=== PATIENT | male | born 1980 | race Caucasian/White ===

== ENCOUNTER 2018-04-24 23:44 | Inpatient (IN) ==
--- NOTE | 2018-04-25 00:36 | CT ---
CT chest without contrast Indication: Esophageal foreign body Comparison: None Technique: CT images of the chest were obtained after oral contrast administration. No IV contrast was given. Automatic exposure control was utilized. Findings: No acute osseous abnormality. The upper abdomen is grossly unremarkable. There is oral contrast observed within the proximal half of the esophagus, with fairly abrupt stoppage of the midesophagus, where there is an area of mild fusiform dilatation with apparent intraluminal soft tissue density measuring approximately 2 x 3 cm; the remainder of the esophagus is otherwise unremarkable. Evaluation of the mediastinal structures is limited without IV contrast. Accounting for this, the thoracic aorta is normal for technique. Normal heart size, without pericardial thickening or pericardial effusion. No pathologically enlarged intrathoracic lymph nodes are identified. There is there infiltrate within the basilar right lower lobe. The lungs are otherwise essentially clear. The large airways are grossly patent. No pleural effusion or pneumothorax. Impression: Findings of midesophageal impaction with soft tissue density/food bolus, with minimal dilatation of the upstream esophagus. Basilar right lower lobe infiltrate suggestive for pneumonitis or aspiration Reported By:
--- NOTE | 2018-04-25 00:38 | DR.FB ---
HPI Time Seen Time Seen by Provider: 04/25/18 00:04 PCP Primary Care Physician: HARDEEP Complaint Chief Complaint:: PATIENT WAS BROUGHT TO US FROM [facility] BY EMS TONIGHT. [facility] CALLED AND SPOKE WITH DR CERVANTES STATING THAT PATIENT HAD A FORIEGN O BJECT STUCK IN ESOPHAGUS. DR CERVANTES ASKED FOR PATIENT TO BE TRANSFERED TO OUR ED AND FOR DR REGALADO OUR ER PHYSICAN TO LOOK OVER HIS STUFF AND GIVE HIM A CALL BACK. LAURA STATED" HE WAS EATING A CORNDOG AND IT GOT STUCK." Chief Complaint Doctors Comments: Patient was transferred from [facility] for evaluation of esophageal obstruction of a foreign body; meat. He is in no acute distress. Source History Provided: Patient Mode of Arrival Mode of Arrival: EMS Timing Onset of Chief Complaint: 04/24/18 PMH PMH Past Medical History: Yes Past Medical History: Asthma, Hypertension, Kidney Stones and Renal Disease Past Surgical History: Yes Surgical History: Ortho Surgery Family History History of Family Medical Conditions: No Social History Does patient currently use any type of tobacco product: Yes Type of Tobacco Use: Smokeless Alcohol Use: None Do you use any recreational Drugs:: No infectious screening Have you traveled outside the country in the last 6 months?: No PE Vital Signs Vitals: Temperature 99.0 F Pulse Rate [Right] 70 Pulse Rate 94 Respiratory Rate 17 Blood Pressure [Right Arm] 128/80 Blood Pressure 143/85 O2 Sat by Pulse Oximetry 100 General Limitations: No Limitations General Appearance: Alert and In No Apparent Distress Eyes Eye exam: Normal Appearance, PERRL and EOMI ENT ENT Exam: Normal Exam, Normal Oropharynx and Normal External Ear Exam External Ear Exam: Normal External Inspection TM/Canal Exam: Bilateral: Normal Nose Exam: Normal Nose Exam Nasal Speculum Exam: Bilateral: Normal Mouth Exam: Normal Inspection; negative Drooling, Trismus, Lip Swelling and Tongue Elevation Throat Exam: Normal Inspection Neck Neck Exam: Normal Inspection Chest Chest Inspection: Normal Inspection Respiratory Respiratory Exam: Normal Lung Sounds Bilat Respiratory Exam: Bilateral: Clear to Auscultation Cardiovascular Cardiovascular Exam: Regular Rate and Normal Rhythm Abdominal Exam Abdominal Exam: Normal Inspection, Normal Bowel Sounds and Soft Rectal Rectal Exam: Deferred Genitalia Genitalia: Deferred Neurologic Neurological Exam: Alert, Oriented X3 and CN II-XII Intact Psychiatric Psychiatric Exam: Normal Affect and Normal Mood Skin Skin Exam: Warm, Dry and Intact COURSE Consultation Called: 01:00 Consultation Comments: Dr. Munguia agreed to admit for further evaluation and treatment. ROR Labs Reviewed Result Diagrams: 04/25/18 04:35 04/25/18 04:35 Laboratory: WBC 6.2 X10^3/uL (3.6-10.0) 04/25/18 04:35 RBC 4.98 X10^6/uL (4.7-6.0) 04/25/18 04:35 Hgb 14.7 g/dL (13.5-18.0) 04/25/18 04:35 Hct 43.1 % (42.0-54.0) 04/25/18 04:35 MCV 86.5 fL (80.0-100.0) 04/25/18 04:35 MCH 29.5 pg (27.0-34.0) 04/25/18 04:35 MCHC 34.1 g/dL (33.0-35.0) 04/25/18 04:35 RDW 14.0 % (11.6-16.5) 04/25/18 04:35 Plt Count 274 X10^3/uL (150.0-450.0) 04/25/18 04:35 MPV 7.0 fL (7.4-11.0) L 04/25/18 04:35 Neut % (Auto) 66.1 % (42.0-75.0) 04/25/18 04:35 Lymph % (Auto) 16.6 % (21.0-51.0) L 04/25/18 04:35 [place] % (Auto) 10.7 % (0.0-13.0) 04/25/18 04:35 Eos % (Auto) 5.6 % (0.9-2.9) H 04/25/18 04:35 Baso % (Auto) 1.0 % (0.2-1.0) 04/25/18 04:35 Neut # (Auto) 4.1 x10^3/uL (2.2-4.8) 04/25/18 04:35 Lymph # (Auto) 1.0 X10^3/uL (1.3-2.9) L 04/25/18 04:35 [place] # (Auto) 0.7 x10^3/uL (0.3-0.8) 04/25/18 04:35 Eos # (Auto) 0.3 x10^3/uL (0.0-0.2) H 04/25/18 04:35 Baso # (Auto) 0.1 X10^3/uL (0.0-0.1) 04/25/18 04:35 Absolute Nucleated RBC 0.1 /100WBC 04/25/18 04:35 Sodium 141 mmol/L (136-145) 04/25/18 04:35 Corrected Sodium TNP 04/25/18 04:35 Potassium 4.0 mmol/L (3.5-5.1) 04/25/18 04:35 Chloride 104 mmol/L (98-107) 04/25/18 04:35 Carbon Dioxide 30.1 mmol/L (21-32) 04/25/18 04:35 BUN 10 mg/dL (7-18) 04/25/18 04:35 Creatinine 0.91 mg/dL (0.70-1.30) 04/25/18 04:35 Est GFR (MDRD) Af Amer > 60 (>60) 04/25/18 04:35 Est GFR (MDRD) Non-Af > 60 (>60) 04/25/18 04:35 Glucose 98 mg/dL (65-99) 04/25/18 04:35 Calcium 8.8 mg/dL (8.5-10.1) 04/25/18 04:35 Corrected Calcium TNP 04/25/18 04:35 Total Bilirubin 0.30 mg/dL (0.2-1.0) 04/25/18 04:35 AST 16 Units/L (15-37) 04/25/18 04:35 ALT 32 Units/L (12-78) 04/25/18 04:35 Alkaline Phosphatase 70 Units/L (46-116) 04/25/18 04:35 Total Protein 7.3 g/dL (6.4-8.2) 04/25/18 04:35 Albumin 3.9 g/dL (3.4-5.0) 04/25/18 04:35 Globulin 3.4 g/dL (2.5-4.5) 04/25/18 04:35 Albumin/Globulin Ratio 1.1 Ratio (1.1-2.1) 04/25/18 04:35 Specimen Type Clean catch urine 04/25/18 04:33 Urine Color Yellow (YELLOW) 04/25/18 04:33 Urine Appearance Clear (CLEAR) 04/25/18 04:33 Urine pH 6.0 (5.0 - 8.0) 04/25/18 04:33 Ur Specific [place] 1.020 (1.000-1.030) 04/25/18 04:33 Urine Protein 1+ (NEGATIVE) 04/25/18 04:33 Urine Glucose (UA) Negative (NEGATIVE) 04/25/18 04:33 Urine Ketones Negative (NEGATIVE) 04/25/18 04:33 Urine Occult Blood 1+ (NEGATIVE) 04/25/18 04:33 Urine Nitrite Negative (NEGATIVE) 04/25/18 04:33 Urine Bilirubin Negative (NEGATIVE) 04/25/18 04:33 Urine Urobilinogen Normal (NORMAL) 04/25/18 04:33 Ur Leukocyte Esterase 1+ (NEGATIVE) 04/25/18 04:33 Urine RBC 3-5 /HPF (NONE SEEN) 04/25/18 04:33 Urine WBC 3-5 /HPF (NONE SEEN) 04/25/18 04:33 Ur Squamous Epith Cells Few /HPF (NEGATIVE) 04/25/18 04:33 Urine Bacteria Trace /HPF (NEGATIVE) 04/25/18 04:33 Urine Mucus Few /HPF (NEGATIVE) 04/25/18 04:33 Ur Culture Indicated? No/not indicated 04/25/18 04:33 Other Results Comments: CT Esophagus r/o Foreign Body:There is oral contrast observed within the proximal half of the esophagus, with fairly abrupt stoppage of the midesophagus, where there is an area of mild fusiform dilatation with apparent intraluminal soft tissue density measuring approximately 2.3 cm; the remainder of the esophagus is otherwise unremarkable. Diagnosis Discharge Problem: Acute obstruction of esophagus ADDITIONAL NOTES Additional Notes Additional Notes: Patient will be admitted to the service of Dr. Munguia with consult to surgeon Dr. Prater
[2018-04-25] MEDS: NS 1000 ML 1,000 ML IV SCH ×2 (01:27→13:41)
[2018-04-25 01:31] LABS: BASOPHILS # (AUTO) 0.1 X10^3/uL (0.0-0.1); BASOPHILS % (AUTO) 0.8 % (0.2-1.0); EOSINOPHILS # (AUTO) 0.4 x10^3/uL (0.0-0.2); EOSINOPHILS % (AUTO) 5.3 % (0.9-2.9); HEMATOCRIT 44.8 % (42.0-54.0); HEMOGLOBIN 15.5 g/dL (13.5-18.0); LYMPHOCYTES # (AUTO) 1.1 X10^3/uL (1.3-2.9); LYMPHOCYTES % (AUTO) 15.2 % (21.0-51.0); MEAN CORPUSCULAR HEMOGLOBIN 29.7 pg (27.0-34.0); MEAN CORPUSCULAR HGB CONC 34.5 g/dL (33.0-35.0); MEAN CORPUSCULAR VOLUME 86.1 fL (80.0-100.0); MEAN PLATELET VOLUME 6.9 fL (7.4-11.0); MONOCYTES # (AUTO) 0.7 x10^3/uL (0.3-0.8); MONOCYTES % (AUTO) 8.7 % (0.0-13.0); NEUTROPHILS # (AUTO) 5.3 x10^3/uL (2.2-4.8); PLATELET COUNT 296 X10^3/uL (150.0-450.0); WHITE BLOOD COUNT 7.5 X10^3/uL (3.6-10.0)
[2018-04-25] MEDS ORDERED: MORPHINE SULFATE INJ 4 MG ONE (01:38)
[2018-04-25] MEDS: MORPHINE SULFATE INJ 4 MG IVP PRN ×3 (01:40→20:10)
[2018-04-25 01:41] LABS: ALANINE AMINOTRANSFERASE 31 Units/L (12-78); ALBUMIN 4.1 g/dL (3.4-5.0); ALKALINE PHOSPHATASE 78 Units/L (46-116); ASPARTATE AMINO TRANSFERASE 19 Units/L (15-37); BLOOD UREA NITROGEN 10 mg/dL (7-18); CALCIUM 9.1 mg/dL (8.5-10.1); CARBON DIOXIDE 29.6 mmol/L (21-32); CHLORIDE 103 mmol/L (98-107); COR NA(FOR HYPERGLY) 143 mmol/L (136-145); CREATININE 0.87 mg/dL (0.70-1.30); SODIUM 142 mmol/L (136-145); TOTAL PROTEIN 7.9 g/dL (6.4-8.2); eGFR NON BLACK RACES > 60 (>60)
[2018-04-25] MEDS ORDERED: NS 1000 ML 1,000 ML IV SCH (02:00)
[2018-04-25] MEDS ORDERED: VIBRAMYCIN IV ONE (02:13)
[2018-04-25] MEDS ORDERED: NS 100 ML IV + SPIKE MINIBAG* 100 ML IV ONE (02:14)
[2018-04-25] MEDS: VIBRAMYCIN 100 MG in NS 100 ML IV + SPIKE MINIBAG* 100 ML IV SCH ×2 (02:27→20:04)
[2018-04-25 02:49] VITALS: BMI 32.1
--- NOTE | 2018-04-25 03:01 | RAD ---
Chest, 2 views Indication: Follow up esophageal impaction Comparison: CT chest from the same date Findings: The heart size is normal. Minimal posterior basilar right lower lobe airspace disease is unchanged. No pleural effusion or pneumothorax. No radiopaque foreign body or obvious esophageal dilatation is observed. Impression: Unchanged minimal right lower lobe airspace disease. Reported By:
[2018-04-25] MEDS ORDERED: SALINE 3% 15 ML NEB TX NEB ONE (04:30)
[2018-04-25 04:44] LABS: BILIRUBIN,URINE NEGATIVE (NEGATIVE); BLOOD/HEMOGLOBIN,URINE 1+ (NEGATIVE); GLUCOSE, URINE NEGATIVE (NEGATIVE); KETONES,URINE NEGATIVE (NEGATIVE); LEUKOCYTE ESTERASE ,URINE 1+ (NEGATIVE); NITRITES,URINE NEGATIVE (NEGATIVE); PROTEIN,URINE 1+ (NEGATIVE); UROBILINOGEN,URINE NORMAL (NORMAL)
[2018-04-25 04:57] LABS: APPEARANCE,URINE CLEAR (CLEAR); BACTERIA,URINE TRACE /HPF (NEGATIVE); COLOR,URINE YELLOW (YELLOW); MUCUS,URINE FEW /HPF (NEGATIVE); SQUAMOUS EPITHELIAL CELL,UR FEW /HPF (NEGATIVE)
[2018-04-25 05:12] LABS: BASOPHILS # (AUTO) 0.1 X10^3/uL (0.0-0.1); EOSINOPHILS # (AUTO) 0.3 x10^3/uL (0.0-0.2); EOSINOPHILS % (AUTO) 5.6 % (0.9-2.9); HEMATOCRIT 43.1 % (42.0-54.0); HEMOGLOBIN 14.7 g/dL (13.5-18.0); LYMPHOCYTES % (AUTO) 16.6 % (21.0-51.0); MEAN CORPUSCULAR HEMOGLOBIN 29.5 pg (27.0-34.0); MEAN CORPUSCULAR HGB CONC 34.1 g/dL (33.0-35.0); MEAN CORPUSCULAR VOLUME 86.5 fL (80.0-100.0); MONOCYTES # (AUTO) 0.7 x10^3/uL (0.3-0.8); MONOCYTES % (AUTO) 10.7 % (0.0-13.0); NEUTROPHILS # (AUTO) 4.1 x10^3/uL (2.2-4.8); NEUTROPHILS % (AUTO) 66.1 % (42.0-75.0); PLATELET COUNT 274 X10^3/uL (150.0-450.0); RED BLOOD COUNT 4.98 X10^6/uL (4.7-6.0); WHITE BLOOD COUNT 6.2 X10^3/uL (3.6-10.0)
[2018-04-25 05:23] LABS: ALANINE AMINOTRANSFERASE 32 Units/L (12-78); ALBUMIN 3.9 g/dL (3.4-5.0); ALKALINE PHOSPHATASE 70 Units/L (46-116); ASPARTATE AMINO TRANSFERASE 16 Units/L (15-37); BLOOD UREA NITROGEN 10 mg/dL (7-18); CALCIUM 8.8 mg/dL (8.5-10.1); CARBON DIOXIDE 30.1 mmol/L (21-32); CHLORIDE 104 mmol/L (98-107); CREATININE 0.91 mg/dL (0.70-1.30); SODIUM 141 mmol/L (136-145); TOTAL PROTEIN 7.3 g/dL (6.4-8.2); eGFR NON BLACK RACES > 60 (>60)
[2018-04-25] MEDS ORDERED: DIPRIVAN VIAL 20 ML ONE (07:42)
--- NOTE | 2018-04-25 08:08 | OR.GENERIC ---
Post-Op Note Generic - Post-Op Note Operative Report: EGD and dilation with the scope was done . finding : food bolus obstructing the esophagus and benign stricture of the mid esophagus ..and small Hiatal hernia Pt did well .. will keep on protonix 40 BID and to be followed in 2 weeks .
[2018-04-25] MEDS ORDERED: FLUVIRIN IM ONE (09:00)
[2018-04-25] MEDS ORDERED: PREVNAR 13 IM ONE (09:00)
[2018-04-25] MEDS ORDERED: LIORESAL PO PRN (09:25)
[2018-04-25] MEDS ORDERED: CHLORASEPTIC SPRAY MT PRN (10:05)
[2018-04-25] MEDS: NORCO 10/325 TAB PO PRN (10:29)
[2018-04-25] MEDS: FLOMAX PO SCH (10:29)
[2018-04-25] MEDS: PROTONIX INJ 40 MG VIAL IVP SCH ×2 (10:30→20:08)
[2018-04-25] MEDS: NEURONTIN TAB 600 MG PO SCH ×3 (10:31→21:31)
[2018-04-25] MEDS ORDERED: STERILE WATER IRRIGATION IR ONE (15:00)
[2018-04-25] MEDS: PROVENTIL NEB TX 0.083% 2.5MG/ 3ML NEB PRN ×2 (16:08→20:18)
--- NOTE | 2018-04-25 17:15 | DR.H&P ---
H&P - History & Physical for Day of: H&P Date: 04/24/18 - Chief Complaint Chief Complaint: SORE THROAT, FATIGUE COUGH - History of Present Illness History of Present Illness: 37 WM ER ADMISSION PRESENTED WITH DYSPHAGIA AND CONSULTED DR RG FOR EGD FOR FOOD BOLUS IN ESOPHAGUS. PT HAS CXR WITH POSSIBLE ASPIRATION PNEUMONIA. PT WAS TAKEN ER FOR EGD, TOLERATED WELL AND STARTED ON PROTONIX. PT STATES HE GERD AND RECENT WORSENED REFLUX WITH WHEEZING DUE TO ASTHMA AND ICNREASED FATIGUE. - Past Medical History Past Medical History: Hypertension, Renal Disease, Asthma, Kidney Stones - Past Surgical History Surgical History: Ortho Surgery - Social History Does patient currently use any type of tobacco product: Yes Have you used tobacco products in the last 12 months: Yes Type of Tobacco Use: Smokeless How many years tobacco product used: 18 Packs per day or dips/chews per day: 1PK Does any household member use tobacco: No Alcohol Use: None Drug Use: None - Medications Home Medications: No Known Drug Allergies Allergy (Verified 04/25/18 00:23) CONTINUE taking the following medications albuterol sulfate [Ventolin HFA] 2 pf unit INHALATION QID PRN 04/25/18 [History] allopurinol 1 tab PO DAILY 04/25/18 [History] atorvastatin 1 tab PO HS 04/25/18 [History] baclofen 1 tab PO TID PRN 04/25/18 [History] cetirizine 1 tab PO DAILY 04/25/18 [History] gabapentin 1 tab PO TID 04/25/18 [History] hydrocodone-acetaminophen 1 tab PO Q6H PRN 04/25/18 [History] ibuprofen 1 tab PO Q6H 04/25/18 [History] lisinopril-hydrochlorothiazide 1 tab PO BID 04/25/18 [History] tamsulosin 1 cap PO DAILY 04/25/18 [History] tramadol 1 - 2 tab PO Q6H PRN 04/25/18 [History] trazodone 1 tab PO HS 04/25/18 [History] - Review of Systems Constitutional: Fever Eyes: No Symptoms Reported ENT: Throat Pain Respiratory: Cough, Wheezing Cardiovascular: No Symptoms Reported Gastrointestinal: No Symptoms Reported Genitourinary: No Symptoms Reported Musculoskeletal: No Symptoms Reported Skin: No Symptoms Reported Neurological: No Symptoms Reported - Physical Exam Vital Signs: Temperature 97.8 F Pulse Rate [Right] 80 Pulse Rate 96 Respiratory Rate 18 Blood Pressure [Right Arm] 112/65 Blood Pressure 143/85 O2 Sat by Pulse Oximetry 99 Oriented: Normal Eyes: Normal Ear: Normal Nose: Normal Throat: Red, Exudate Respiratory: RLL Diminished, LLL Diminished Cardiovascular: Normal : Normal Auscultation: Bowel Sounds: Normal Palpation: Normal Tenderness: Normal Skin: Normal Musculoskeletal: Normal Psychiatric: Depression Mood Description: Calm Speech Pattern: Clear, Appropriate - Assessment/Plan (1) Aspiration pneumonia Status: Acute Plan: ADMIT, PNEUMONIA PROTOCOL, IV ATBX. RESP THERAPY. GENTLE HYDRATION, PPI. RESUME HOME MEDICATION (2) Acute obstruction of esophagus Status: Acute Plan: EGD PER DR RG (3) Anxiety Status: Acute (4) GERD (gastroesophageal reflux disease) Status: Acute - Allergies Allergies/Adverse Reactions: Allergies Allergy/AdvReac Type Severity Reaction Status Date / Time No Known Drug Allergies Allergy Verified 04/25/18 00:23
[2018-04-25] MEDS ORDERED: ZESTRIL TAB 20 MG ONE (19:56)
[2018-04-25] MEDS: LIPITOR TAB 20 MG PO SCH (20:05)
[2018-04-25] MEDS: DESYREL PO SCH (20:05)
[2018-04-25] MEDS: HYDROCHLOROTHIAZIDE 12.5 MG CAP PO SCH (20:06)
[2018-04-25] MEDS: ZESTRIL TAB 20 MG PO SCH (20:39)
[2018-04-25] MEDS ORDERED: PATIENT'S HOME MEDICATION (Lisinopril-Hydrochlorothiazide [Lisinopril-Hydrochlorothiazide] PO SCH (21:00)
[2018-04-26] MEDS ORDERED: TYLENOL 325 MG TAB PO ONE (04:38)
[2018-04-26] MEDS: TYLENOL 325 MG TAB PO PRN ×2 (04:42→07:31)
[2018-04-26] MEDS: NS 1000 ML 1,000 ML IV SCH ×2 (04:43→18:59)
[2018-04-26] MEDS: NEURONTIN TAB 600 MG PO SCH ×3 (05:05→21:53)
[2018-04-26 05:17] LABS: BASOPHILS # (AUTO) 0.1 X10^3/uL (0.0-0.1); BASOPHILS % (AUTO) 0.8 % (0.2-1.0); EOSINOPHILS # (AUTO) 0.3 x10^3/uL (0.0-0.2); EOSINOPHILS % (AUTO) 5.2 % (0.9-2.9); HEMATOCRIT 38.7 % (42.0-54.0); HEMOGLOBIN 13.1 g/dL (13.5-18.0); LYMPHOCYTES % (AUTO) 15.6 % (21.0-51.0); MEAN CORPUSCULAR HEMOGLOBIN 29.5 pg (27.0-34.0); MEAN CORPUSCULAR HGB CONC 33.8 g/dL (33.0-35.0); MEAN CORPUSCULAR VOLUME 87.5 fL (80.0-100.0); MEAN PLATELET VOLUME 6.9 fL (7.4-11.0); MONOCYTES # (AUTO) 0.7 x10^3/uL (0.3-0.8); MONOCYTES % (AUTO) 11.7 % (0.0-13.0); NEUTROPHILS # (AUTO) 4.3 x10^3/uL (2.2-4.8); NEUTROPHILS % (AUTO) 66.7 % (42.0-75.0); PLATELET COUNT 248 X10^3/uL (150.0-450.0); RED BLOOD COUNT 4.42 X10^6/uL (4.7-6.0); RED CELL DISTRIBUTION WIDTH 14.4 % (11.6-16.5); WHITE BLOOD COUNT 6.4 X10^3/uL (3.6-10.0)
[2018-04-26 05:34] LABS: ALANINE AMINOTRANSFERASE 31 Units/L (12-78); ALBUMIN 3.5 g/dL (3.4-5.0); ALKALINE PHOSPHATASE 64 Units/L (46-116); ASPARTATE AMINO TRANSFERASE 20 Units/L (15-37); BLOOD UREA NITROGEN 11 mg/dL (7-18); CALCIUM 8.5 mg/dL (8.5-10.1); CARBON DIOXIDE 28.4 mmol/L (21-32); CHLORIDE 104 mmol/L (98-107); CREATININE 1.45 mg/dL (0.70-1.30); SODIUM 140 mmol/L (136-145); TOTAL PROTEIN 6.9 g/dL (6.4-8.2); eGFR NON BLACK RACES 59 (>60)
[2018-04-26] MEDS: NORCO 10/325 TAB PO PRN ×2 (05:35→16:00)
--- NOTE | 2018-04-26 06:24 | RAD ---
HISTORY: Follow-up midesophageal obstruction Study: Chest AP portable Comparison: 04/25/2018 plain film and chest CT Findings: The heart is within normal limits in size. The sa[place] are normal. The lungs are free of acute alveolar infiltrates. There is minimal subsegmental atelectasis in the right lung base. No pleural effusions are identified. The bony thorax is unremarkable. IMPRESSION: Minimal subsegmental atelectasis right lung base Reported By:
[2018-04-26] MEDS ORDERED: ZESTRIL TAB 20 MG ONE ×2 (08:08→19:55)
[2018-04-26] MEDS: PROVENTIL NEB TX 0.083% 2.5MG/ 3ML NEB PRN ×2 (08:16→12:10)
[2018-04-26] MEDS: VIBRAMYCIN 100 MG in NS 100 ML IV + SPIKE MINIBAG* 100 ML IV SCH ×2 (08:36→20:09)
[2018-04-26] MEDS: FLOMAX PO SCH (08:36)
[2018-04-26] MEDS: HYDROCHLOROTHIAZIDE 12.5 MG CAP PO SCH ×2 (08:37→20:10)
[2018-04-26] MEDS: ZyrTEC TAB 10 MG PO SCH (08:37)
[2018-04-26] MEDS: ZESTRIL TAB 20 MG PO SCH ×2 (08:37→20:11)
[2018-04-26] MEDS: PROTONIX INJ 40 MG VIAL IVP SCH ×2 (08:40→20:09)
[2018-04-26] MEDS: MORPHINE SULFATE INJ 4 MG IVP PRN ×2 (08:45→19:26)
[2018-04-26] MEDS: LEVAQUIN PREMIX IV 750 MG 750 MG/150 ML BAG IV SCH (09:38)
[2018-04-26] MEDS: LEVSIN/MAALOX/LIDOC VISC PO SCH ×4 (10:19→20:09)
--- NOTE | 2018-04-26 17:51 | PCM.PROG ---
Progress Note - Progress Note for Day of Date of Exam: 04/25/18 - Subjective Subjective: 55 WM ER ADMISSION WITH CO FOOD STUCK IN HIS ESOPHAGUS, DR RG WAS CONSULTED FOR EGD TO REMOVE FOOD BOLUS. PT HAS CXR REVEALING PNEUMONIA, POSSIBLE ASPIRATION. PT CURRENTLY ON IV ATBX, RESP THERAPY WITH SPUTUM CULTURE COLLECTED ON ADMISSION. PT CO MILD WHEEZING THIS AM, CO FEELING BAD FOR SEVERAL DAYS PRIOR TO CHOKING EPISODE. PT CO REALLY SORE THROAT THIS AM. PT HOME MEDICATION RESTARTED, WILL REPEAT AM CXR. - Past Medical Family Social History Past Med/Fam/Surg Hx: No changes since H&P Allergies: Allergies No Known Drug Allergies Allergy (Verified 04/25/18 00:23) - Review of Systems ROS: No change since H&P - Vital Signs and I&O's Vital Signs: Temperature 100.0 F Pulse Rate [Right] 110 Pulse Rate 110 Respiratory Rate 18 Blood Pressure [Right Arm] 122/70 Blood Pressure 143/85 O2 Sat by Pulse Oximetry 99 Intake and Output: Intake & Output 04/24/18 04/25/18 04/26/18 04/27/18 11:59 11:59 11:59 11:59 Intake Total 480 / 480 4241 / 4241 1400 / 1400 Balance 480 / 480 4241 / 4241 1400 / 1400 - Physical Exam Oriented: Normal Eyes: Normal Ear: Normal Nose: Normal Throat: Red, Exudate Respiratory: Wheezes Cardiovascular: Normal : Normal Auscultation: Bowel Sounds: Normal Tenderness: Normal Skin: Normal Musculoskeletal: Normal Psychiatric: Depression Mood Description: Calm Speech Pattern: Clear, Appropriate - Laboratory and Diagnostics Result Diagrams: 04/26/18 03:55 04/26/18 03:55 Labs: 04/25/18 05:21 Sputum - Expectorated Sputum Sputum Culture - Preliminary 04/25/18 05:21 Sputum - Expectorated Sputum - Final Laboratory WBC 6.4 X10^3/uL (3.6-10.0) 04/26/18 03:55 RBC 4.42 X10^6/uL (4.7-6.0) L 04/26/18 03:55 Hgb 13.1 g/dL (13.5-18.0) L 04/26/18 03:55 Hct 38.7 % (42.0-54.0) L 04/26/18 03:55 MCV 87.5 fL (80.0-100.0) 04/26/18 03:55 MCH 29.5 pg (27.0-34.0) 04/26/18 03:55 MCHC 33.8 g/dL (33.0-35.0) 04/26/18 03:55 RDW 14.4 % (11.6-16.5) 04/26/18 03:55 Plt Count 248 X10^3/uL (150.0-450.0) 04/26/18 03:55 MPV 6.9 fL (7.4-11.0) L 04/26/18 03:55 Neut % (Auto) 66.7 % (42.0-75.0) 04/26/18 03:55 Lymph % (Auto) 15.6 % (21.0-51.0) L 04/26/18 03:55 [place] % (Auto) 11.7 % (0.0-13.0) 04/26/18 03:55 Eos % (Auto) 5.2 % (0.9-2.9) H 04/26/18 03:55 Baso % (Auto) 0.8 % (0.2-1.0) 04/26/18 03:55 Neut # (Auto) 4.3 x10^3/uL (2.2-4.8) 04/26/18 03:55 Lymph # (Auto) 1.0 X10^3/uL (1.3-2.9) L 04/26/18 03:55 [place] # (Auto) 0.7 x10^3/uL (0.3-0.8) 04/26/18 03:55 Eos # (Auto) 0.3 x10^3/uL (0.0-0.2) H 04/26/18 03:55 Baso # (Auto) 0.1 X10^3/uL (0.0-0.1) 04/26/18 03:55 Absolute Nucleated RBC 0.0 /100WBC 04/26/18 03:55 Sodium 140 mmol/L (136-145) 04/26/18 03:55 Corrected Sodium TNP 04/26/18 03:55 Potassium 4.8 mmol/L (3.5-5.1) 04/26/18 03:55 Chloride 104 mmol/L (98-107) 04/26/18 03:55 Carbon Dioxide 28.4 mmol/L (21-32) 04/26/18 03:55 BUN 11 mg/dL (7-18) 04/26/18 03:55 Creatinine 1.45 mg/dL (0.70-1.30) H 04/26/18 03:55 Est GFR (MDRD) Af Amer > 60 (>60) 04/26/18 03:55 Est GFR (MDRD) Non-Af 59 (>60) 04/26/18 03:55 Glucose 97 mg/dL (65-99) 04/26/18 03:55 Calcium 8.5 mg/dL (8.5-10.1) 04/26/18 03:55 Corrected Calcium TNP 04/26/18 03:55 Total Bilirubin 0.60 mg/dL (0.2-1.0) 04/26/18 03:55 AST 20 Units/L (15-37) 04/26/18 03:55 ALT 31 Units/L (12-78) 04/26/18 03:55 Alkaline Phosphatase 64 Units/L (46-116) 04/26/18 03:55 Total Protein 6.9 g/dL (6.4-8.2) 04/26/18 03:55 Albumin 3.5 g/dL (3.4-5.0) 04/26/18 03:55 Globulin 3.4 g/dL (2.5-4.5) 04/26/18 03:55 Albumin/Globulin Ratio 1.0 Ratio (1.1-2.1) L 04/26/18 03:55 Specimen Type Clean catch urine 04/25/18 04:33 Urine Color Yellow (YELLOW) 04/25/18 04:33 Urine Appearance Clear (CLEAR) 04/25/18 04:33 Urine pH 6.0 (5.0 - 8.0) 04/25/18 04:33 Ur Specific [place] 1.020 (1.000-1.030) 04/25/18 04:33 Urine Protein 1+ (NEGATIVE) 04/25/18 04:33 Urine Glucose (UA) Negative (NEGATIVE) 04/25/18 04:33 Urine Ketones Negative (NEGATIVE) 04/25/18 04:33 Urine Occult Blood 1+ (NEGATIVE) 04/25/18 04:33 Urine Nitrite Negative (NEGATIVE) 04/25/18 04:33 Urine Bilirubin Negative (NEGATIVE) 04/25/18 04:33 Urine Urobilinogen Normal (NORMAL) 04/25/18 04:33 Ur Leukocyte Esterase 1+ (NEGATIVE) 04/25/18 04:33 Urine RBC 3-5 /HPF (NONE SEEN) 04/25/18 04:33 Urine WBC 3-5 /HPF (NONE SEEN) 04/25/18 04:33 Ur Squamous Epith Cells Few /HPF (NEGATIVE) 04/25/18 04:33 Urine Bacteria Trace /HPF (NEGATIVE) 04/25/18 04:33 Urine Mucus Few /HPF (NEGATIVE) 04/25/18 04:33 Ur Culture Indicated? No/not indicated 04/25/18 04:33 - Plan (1) Aspiration pneumonia Status: Acute Plan: PNEUMONIA PROTOCOL, IV ATBX. RESP THERAPY. GENTLE HYDRATION, PPI. RESUME HOME MEDICATION (2) Acute obstruction of esophagus Status: Acute Plan: EGD PER DR RG (3) Anxiety Status: Acute (4) GERD (gastroesophageal reflux disease) Status: Acute
--- NOTE | 2018-04-26 17:53 | PCM.PROG ---
Progress Note - Progress Note for Day of Date of Exam: 04/26/18 - Subjective Subjective: 55 WM ER ADMISSION WITH CO FOOD STUCK IN HIS ESOPHAGUS, DR RG WAS CONSULTED FOR EGD TO REMOVE FOOD BOLUS. PT HAS CXR REVEALING PNEUMONIA, POSSIBLE ASPIRATION. PT CURRENTLY ON IV ATBX, RESP THERAPY WITH SPUTUM CULTURE COLLECTED ON ADMISSION. PT CO IMPROVING SORE THROAT, CONTINUES WITH MILD WHEEZING, COUGH. PT HAD FEVER DURING THE NIGHT. REPEAT CXR THIS AM IMPROVING. ADDED LEVAQUIN IV AND REPEAT AM LABS AND GI COCKTAIL. - Past Medical Family Social History Past Med/Fam/Surg Hx: No changes since H&P Allergies: Allergies No Known Drug Allergies Allergy (Verified 04/25/18 00:23) - Review of Systems ROS: No change since H&P - Vital Signs and I&O's Vital Signs: Temperature 100.0 F Pulse Rate [Right] 110 Pulse Rate 110 Respiratory Rate 18 Blood Pressure [Right Arm] 122/70 Blood Pressure 143/85 O2 Sat by Pulse Oximetry 99 Intake and Output: Intake & Output 04/24/18 04/25/18 04/26/18 04/27/18 11:59 11:59 11:59 11:59 Intake Total 480 / 480 4241 / 4241 1400 / 1400 Balance 480 / 480 4241 / 4241 1400 / 1400 - Physical Exam Oriented: Normal Eyes: Normal Ear: Normal Nose: Normal Throat: Red, Exudate Respiratory: Wheezes Cardiovascular: Normal : Normal Auscultation: Bowel Sounds: Normal Tenderness: Normal Skin: Normal Musculoskeletal: Normal Psychiatric: Depression Mood Description: Calm Speech Pattern: Clear, Appropriate - Laboratory and Diagnostics Result Diagrams: 04/26/18 03:55 04/26/18 03:55 Labs: 04/25/18 05:21 Sputum - Expectorated Sputum Sputum Culture - Preliminary 04/25/18 05:21 Sputum - Expectorated Sputum - Final Laboratory WBC 6.4 X10^3/uL (3.6-10.0) 04/26/18 03:55 RBC 4.42 X10^6/uL (4.7-6.0) L 04/26/18 03:55 Hgb 13.1 g/dL (13.5-18.0) L 04/26/18 03:55 Hct 38.7 % (42.0-54.0) L 04/26/18 03:55 MCV 87.5 fL (80.0-100.0) 04/26/18 03:55 MCH 29.5 pg (27.0-34.0) 04/26/18 03:55 MCHC 33.8 g/dL (33.0-35.0) 04/26/18 03:55 RDW 14.4 % (11.6-16.5) 04/26/18 03:55 Plt Count 248 X10^3/uL (150.0-450.0) 04/26/18 03:55 MPV 6.9 fL (7.4-11.0) L 04/26/18 03:55 Neut % (Auto) 66.7 % (42.0-75.0) 04/26/18 03:55 Lymph % (Auto) 15.6 % (21.0-51.0) L 04/26/18 03:55 [place] % (Auto) 11.7 % (0.0-13.0) 04/26/18 03:55 Eos % (Auto) 5.2 % (0.9-2.9) H 04/26/18 03:55 Baso % (Auto) 0.8 % (0.2-1.0) 04/26/18 03:55 Neut # (Auto) 4.3 x10^3/uL (2.2-4.8) 04/26/18 03:55 Lymph # (Auto) 1.0 X10^3/uL (1.3-2.9) L 04/26/18 03:55 [place] # (Auto) 0.7 x10^3/uL (0.3-0.8) 04/26/18 03:55 Eos # (Auto) 0.3 x10^3/uL (0.0-0.2) H 04/26/18 03:55 Baso # (Auto) 0.1 X10^3/uL (0.0-0.1) 04/26/18 03:55 Absolute Nucleated RBC 0.0 /100WBC 04/26/18 03:55 Sodium 140 mmol/L (136-145) 04/26/18 03:55 Corrected Sodium TNP 04/26/18 03:55 Potassium 4.8 mmol/L (3.5-5.1) 04/26/18 03:55 Chloride 104 mmol/L (98-107) 04/26/18 03:55 Carbon Dioxide 28.4 mmol/L (21-32) 04/26/18 03:55 BUN 11 mg/dL (7-18) 04/26/18 03:55 Creatinine 1.45 mg/dL (0.70-1.30) H 04/26/18 03:55 Est GFR (MDRD) Af Amer > 60 (>60) 04/26/18 03:55 Est GFR (MDRD) Non-Af 59 (>60) 04/26/18 03:55 Glucose 97 mg/dL (65-99) 04/26/18 03:55 Calcium 8.5 mg/dL (8.5-10.1) 04/26/18 03:55 Corrected Calcium TNP 04/26/18 03:55 Total Bilirubin 0.60 mg/dL (0.2-1.0) 04/26/18 03:55 AST 20 Units/L (15-37) 04/26/18 03:55 ALT 31 Units/L (12-78) 04/26/18 03:55 Alkaline Phosphatase 64 Units/L (46-116) 04/26/18 03:55 Total Protein 6.9 g/dL (6.4-8.2) 04/26/18 03:55 Albumin 3.5 g/dL (3.4-5.0) 04/26/18 03:55 Globulin 3.4 g/dL (2.5-4.5) 04/26/18 03:55 Albumin/Globulin Ratio 1.0 Ratio (1.1-2.1) L 04/26/18 03:55 Specimen Type Clean catch urine 04/25/18 04:33 Urine Color Yellow (YELLOW) 04/25/18 04:33 Urine Appearance Clear (CLEAR) 04/25/18 04:33 Urine pH 6.0 (5.0 - 8.0) 04/25/18 04:33 Ur Specific [place] 1.020 (1.000-1.030) 04/25/18 04:33 Urine Protein 1+ (NEGATIVE) 04/25/18 04:33 Urine Glucose (UA) Negative (NEGATIVE) 04/25/18 04:33 Urine Ketones Negative (NEGATIVE) 04/25/18 04:33 Urine Occult Blood 1+ (NEGATIVE) 04/25/18 04:33 Urine Nitrite Negative (NEGATIVE) 04/25/18 04:33 Urine Bilirubin Negative (NEGATIVE) 04/25/18 04:33 Urine Urobilinogen Normal (NORMAL) 04/25/18 04:33 Ur Leukocyte Esterase 1+ (NEGATIVE) 04/25/18 04:33 Urine RBC 3-5 /HPF (NONE SEEN) 04/25/18 04:33 Urine WBC 3-5 /HPF (NONE SEEN) 04/25/18 04:33 Ur Squamous Epith Cells Few /HPF (NEGATIVE) 04/25/18 04:33 Urine Bacteria Trace /HPF (NEGATIVE) 04/25/18 04:33 Urine Mucus Few /HPF (NEGATIVE) 04/25/18 04:33 Ur Culture Indicated? No/not indicated 04/25/18 04:33 - Plan (1) Aspiration pneumonia Status: Acute Plan: PNEUMONIA PROTOCOL, IV ATBX. RESP THERAPY. GENTLE HYDRATION, PPI. RESUME HOME MEDICATION (2) Acute obstruction of esophagus Status: Acute Plan: EGD PER DR RG (3) Anxiety Status: Acute (4) GERD (gastroesophageal reflux disease) Status: Acute
[2018-04-26] MEDS: DESYREL PO SCH (20:10)
[2018-04-26] MEDS: LIPITOR TAB 20 MG PO SCH (20:10)
[2018-04-27] MEDS: MORPHINE SULFATE INJ 4 MG IVP PRN ×2 (03:50→20:23)
[2018-04-27] MEDS: NEURONTIN TAB 600 MG PO SCH ×3 (05:06→21:45)
[2018-04-27 05:32] LABS: BASOPHILS % (AUTO) 0.8 % (0.2-1.0); EOSINOPHILS # (AUTO) 0.5 x10^3/uL (0.0-0.2); EOSINOPHILS % (AUTO) 11.2 % (0.9-2.9); HEMATOCRIT 38.1 % (42.0-54.0); HEMOGLOBIN 13.1 g/dL (13.5-18.0); LYMPHOCYTES # (AUTO) 1.2 X10^3/uL (1.3-2.9); LYMPHOCYTES % (AUTO) 25.5 % (21.0-51.0); MEAN CORPUSCULAR HGB CONC 34.3 g/dL (33.0-35.0); MEAN CORPUSCULAR VOLUME 87.4 fL (80.0-100.0); MEAN PLATELET VOLUME 6.8 fL (7.4-11.0); MONOCYTES # (AUTO) 0.6 x10^3/uL (0.3-0.8); MONOCYTES % (AUTO) 13.6 % (0.0-13.0); NEUTROPHILS # (AUTO) 2.3 x10^3/uL (2.2-4.8); NEUTROPHILS % (AUTO) 48.9 % (42.0-75.0); PLATELET COUNT 227 X10^3/uL (150.0-450.0); RED BLOOD COUNT 4.36 X10^6/uL (4.7-6.0); RED CELL DISTRIBUTION WIDTH 14.2 % (11.6-16.5); WHITE BLOOD COUNT 4.6 X10^3/uL (3.6-10.0)
[2018-04-27 05:45] LABS: ALANINE AMINOTRANSFERASE 26 Units/L (12-78); ALBUMIN 3.3 g/dL (3.4-5.0); ALKALINE PHOSPHATASE 61 Units/L (46-116); ASPARTATE AMINO TRANSFERASE 16 Units/L (15-37); BLOOD UREA NITROGEN 7 mg/dL (7-18); CALCIUM 8.2 mg/dL (8.5-10.1); CARBON DIOXIDE 32.2 mmol/L (21-32); CHLORIDE 102 mmol/L (98-107); COR CA(FOR HYPOALB) 8.8 mg/dL (8.5-10.1); CREATININE 0.94 mg/dL (0.70-1.30); SODIUM 141 mmol/L (136-145); TOTAL PROTEIN 6.6 g/dL (6.4-8.2); eGFR NON BLACK RACES > 60 (>60)
[2018-04-27] MEDS: NS 1000 ML 1,000 ML IV SCH ×3 (06:26→22:27)
[2018-04-27] MEDS ORDERED: ZESTRIL TAB 20 MG ONE ×2 (08:36→20:01)
[2018-04-27] MEDS: NORCO 10/325 TAB PO PRN ×2 (08:58→15:32)
[2018-04-27] MEDS: ZyrTEC TAB 10 MG PO SCH (08:59)
[2018-04-27] MEDS: FLOMAX PO SCH (08:59)
[2018-04-27] MEDS: ZESTRIL TAB 20 MG PO SCH ×2 (08:59→20:22)
[2018-04-27] MEDS: HYDROCHLOROTHIAZIDE 12.5 MG CAP PO SCH ×2 (08:59→20:22)
[2018-04-27] MEDS: LEVAQUIN PREMIX IV 750 MG 750 MG/150 ML BAG IV SCH (08:59)
[2018-04-27] MEDS: VIBRAMYCIN 100 MG in NS 100 ML IV + SPIKE MINIBAG* 100 ML IV SCH ×2 (09:00→20:21)
[2018-04-27] MEDS: PROTONIX INJ 40 MG VIAL IVP SCH ×2 (09:00→20:22)
[2018-04-27] MEDS: PROVENTIL NEB TX 0.083% 2.5MG/ 3ML NEB PRN (10:18)
--- NOTE | 2018-04-27 12:54 | PCM.PROG ---
Progress Note - Progress Note for Day of Date of Exam: 04/27/18 - Subjective Subjective: 55 WM ER ADMISSION WITH CO FOOD STUCK IN HIS ESOPHAGUS, DR RG WAS CONSULTED FOR EGD TO REMOVE FOOD BOLUS. PT HAS CXR REVEALING PNEUMONIA, POSSIBLE ASPIRATION. PT CURRENTLY ON IV ATBX, RESP THERAPY WITH SPUTUM CULTURE COLLECTED ON ADMISSION. PT CO IMPROVING SORE THROAT, CONTINUES WITH MILD WHEEZING, COUGH AND CO SINUS AND HEAD CONGESTION. PT AFEBRILE THIS AM. WILL REPEAT 2VIEW CHEST XRAY AND ADD SIMON AND FLONASE - Past Medical Family Social History Past Med/Fam/Surg Hx: No changes since H&P Allergies: Allergies No Known Drug Allergies Allergy (Verified 04/25/18 00:23) - Review of Systems ROS: No change since H&P - Vital Signs and I&O's Vital Signs: Temperature 98.9 F Pulse Rate [Right] 110 Pulse Rate 94 Respiratory Rate 20 Blood Pressure [Right Arm] 114/61 Blood Pressure 143/85 O2 Sat by Pulse Oximetry 98 Intake and Output: Intake & Output 04/25/18 04/26/18 04/27/18 04/28/18 11:59 11:59 11:59 11:59 Intake Total 480 / 480 4241 / 4241 3860 / 3860 Balance 480 / 480 4241 / 4241 3860 / 3860 - Physical Exam Oriented: Normal Eyes: Normal Ear: Normal Nose: Normal Throat: Red, Exudate Respiratory: Wheezes Cardiovascular: Normal : Normal Auscultation: Bowel Sounds: Normal Tenderness: Normal Skin: Normal Musculoskeletal: Normal Psychiatric: Depression Mood Description: Calm Speech Pattern: Clear, Appropriate - Laboratory and Diagnostics Result Diagrams: 04/27/18 04:05 04/27/18 04:05 Labs: 04/25/18 01:40 Blood Blood Culture - Preliminary 04/25/18 01:35 Blood Blood Culture - Preliminary 04/25/18 05:21 Sputum - Expectorated Sputum Sputum Culture - Final 04/25/18 05:21 Sputum - Expectorated Sputum - Final Laboratory WBC 4.6 X10^3/uL (3.6-10.0) 04/27/18 04:05 RBC 4.36 X10^6/uL (4.7-6.0) L 04/27/18 04:05 Hgb 13.1 g/dL (13.5-18.0) L 04/27/18 04:05 Hct 38.1 % (42.0-54.0) L 04/27/18 04:05 MCV 87.4 fL (80.0-100.0) 04/27/18 04:05 MCH 30.0 pg (27.0-34.0) 04/27/18 04:05 MCHC 34.3 g/dL (33.0-35.0) 04/27/18 04:05 RDW 14.2 % (11.6-16.5) 04/27/18 04:05 Plt Count 227 X10^3/uL (150.0-450.0) 04/27/18 04:05 MPV 6.8 fL (7.4-11.0) L 04/27/18 04:05 Neut % (Auto) 48.9 % (42.0-75.0) 04/27/18 04:05 Lymph % (Auto) 25.5 % (21.0-51.0) 04/27/18 04:05 Pershing % (Auto) 13.6 % (0.0-13.0) H 04/27/18 04:05 Eos % (Auto) 11.2 % (0.9-2.9) H 04/27/18 04:05 Baso % (Auto) 0.8 % (0.2-1.0) 04/27/18 04:05 Neut # (Auto) 2.3 x10^3/uL (2.2-4.8) 04/27/18 04:05 Lymph # (Auto) 1.2 X10^3/uL (1.3-2.9) L 04/27/18 04:05 Pershing # (Auto) 0.6 x10^3/uL (0.3-0.8) 04/27/18 04:05 Eos # (Auto) 0.5 x10^3/uL (0.0-0.2) H 04/27/18 04:05 Baso # (Auto) 0.0 X10^3/uL (0.0-0.1) 04/27/18 04:05 Absolute Nucleated RBC 0.1 /100WBC 04/27/18 04:05 Sodium 141 mmol/L (136-145) 04/27/18 04:05 Corrected Sodium TNP 04/27/18 04:05 Potassium 3.8 mmol/L (3.5-5.1) 04/27/18 04:05 Chloride 102 mmol/L (98-107) 04/27/18 04:05 Carbon Dioxide 32.2 mmol/L (21-32) H 04/27/18 04:05 BUN 7 mg/dL (7-18) 04/27/18 04:05 Creatinine 0.94 mg/dL (0.70-1.30) 04/27/18 04:05 Est GFR (MDRD) Af Amer > 60 (>60) 04/27/18 04:05 Est GFR (MDRD) Non-Af > 60 (>60) 04/27/18 04:05 Glucose 105 mg/dL (65-99) H 04/27/18 04:05 Calcium 8.2 mg/dL (8.5-10.1) L 04/27/18 04:05 Corrected Calcium 8.8 mg/dL (8.5-10.1) 04/27/18 04:05 Total Bilirubin 0.40 mg/dL (0.2-1.0) 04/27/18 04:05 AST 16 Units/L (15-37) 04/27/18 04:05 ALT 26 Units/L (12-78) 04/27/18 04:05 Alkaline Phosphatase 61 Units/L (46-116) 04/27/18 04:05 Total Protein 6.6 g/dL (6.4-8.2) 04/27/18 04:05 Albumin 3.3 g/dL (3.4-5.0) L 04/27/18 04:05 Globulin 3.3 g/dL (2.5-4.5) 04/27/18 04:05 Albumin/Globulin Ratio 1.0 Ratio (1.1-2.1) L 04/27/18 04:05 Specimen Type Clean catch urine 04/25/18 04:33 Urine Color Yellow (YELLOW) 04/25/18 04:33 Urine Appearance Clear (CLEAR) 04/25/18 04:33 Urine pH 6.0 (5.0 - 8.0) 04/25/18 04:33 Ur Specific [place] 1.020 (1.000-1.030) 04/25/18 04:33 Urine Protein 1+ (NEGATIVE) 04/25/18 04:33 Urine Glucose (UA) Negative (NEGATIVE) 04/25/18 04:33 Urine Ketones Negative (NEGATIVE) 04/25/18 04:33 Urine Occult Blood 1+ (NEGATIVE) 04/25/18 04:33 Urine Nitrite Negative (NEGATIVE) 04/25/18 04:33 Urine Bilirubin Negative (NEGATIVE) 04/25/18 04:33 Urine Urobilinogen Normal (NORMAL) 04/25/18 04:33 Ur Leukocyte Esterase 1+ (NEGATIVE) 04/25/18 04:33 Urine RBC 3-5 /HPF (NONE SEEN) 04/25/18 04:33 Urine WBC 3-5 /HPF (NONE SEEN) 04/25/18 04:33 Ur Squamous Epith Cells Few /HPF (NEGATIVE) 04/25/18 04:33 Urine Bacteria Trace /HPF (NEGATIVE) 04/25/18 04:33 Urine Mucus Few /HPF (NEGATIVE) 04/25/18 04:33 Ur Culture Indicated? No/not indicated 04/25/18 04:33 - Plan (1) Aspiration pneumonia Status: Acute Plan: PNEUMONIA PROTOCOL, IV ATBX. RESP THERAPY. GENTLE HYDRATION, PPI. RESUME HOME MEDICATION (2) Acute obstruction of esophagus Status: Acute Plan: EGD PER DR RG (3) Anxiety Status: Acute (4) GERD (gastroesophageal reflux disease) Status: Acute
[2018-04-27] MEDS ORDERED: ALLEGRA ONE (14:30)
[2018-04-27] MEDS: FLONASE NASAL SPRAY ENOSTRIL SCH (14:51)
[2018-04-27] MEDS: ALLEGRA PO SCH (14:51)
[2018-04-27] MEDS: DESYREL PO SCH (20:22)
[2018-04-27] MEDS: LIPITOR TAB 20 MG PO SCH (20:22)
[2018-04-28] MEDS: NORCO 10/325 TAB PO PRN ×2 (04:05→10:31)
[2018-04-28] MEDS: NEURONTIN TAB 600 MG PO SCH (05:36)
[2018-04-28] MEDS: MORPHINE SULFATE INJ 4 MG IVP PRN (05:38)
[2018-04-28 06:49] LABS: ALANINE AMINOTRANSFERASE 25 Units/L (12-78); ALBUMIN 3.4 g/dL (3.4-5.0); ALKALINE PHOSPHATASE 65 Units/L (46-116); ASPARTATE AMINO TRANSFERASE 17 Units/L (15-37); BLOOD UREA NITROGEN 8 mg/dL (7-18); CALCIUM 8.9 mg/dL (8.5-10.1); CARBON DIOXIDE 30.1 mmol/L (21-32); CHLORIDE 103 mmol/L (98-107); CREATININE 0.97 mg/dL (0.70-1.30); SODIUM 140 mmol/L (136-145); eGFR NON BLACK RACES > 60 (>60)
[2018-04-28 06:52] LABS: BASOPHILS % (AUTO) 0.7 % (0.2-1.0); EOSINOPHILS # (AUTO) 0.7 x10^3/uL (0.0-0.2); EOSINOPHILS % (AUTO) 12.3 % (0.9-2.9); HEMATOCRIT 39.1 % (42.0-54.0); HEMOGLOBIN 13.4 g/dL (13.5-18.0); LYMPHOCYTES # (AUTO) 0.9 X10^3/uL (1.3-2.9); LYMPHOCYTES % (AUTO) 15.9 % (21.0-51.0); MEAN CORPUSCULAR HEMOGLOBIN 29.8 pg (27.0-34.0); MEAN CORPUSCULAR HGB CONC 34.4 g/dL (33.0-35.0); MEAN CORPUSCULAR VOLUME 86.5 fL (80.0-100.0); MEAN PLATELET VOLUME 6.8 fL (7.4-11.0); MONOCYTES # (AUTO) 0.7 x10^3/uL (0.3-0.8); MONOCYTES % (AUTO) 12.4 % (0.0-13.0); NEUTROPHILS # (AUTO) 3.4 x10^3/uL (2.2-4.8); NEUTROPHILS % (AUTO) 58.7 % (42.0-75.0); PLATELET COUNT 236 X10^3/uL (150.0-450.0); RED BLOOD COUNT 4.52 X10^6/uL (4.7-6.0); RED CELL DISTRIBUTION WIDTH 14.2 % (11.6-16.5); WHITE BLOOD COUNT 5.7 X10^3/uL (3.6-10.0)
[2018-04-28] MEDS ORDERED: ALLEGRA ONE (08:22)
[2018-04-28] MEDS ORDERED: ZESTRIL TAB 20 MG ONE (08:23)
[2018-04-28] MEDS: LEVAQUIN PREMIX IV 750 MG 750 MG/150 ML BAG IV SCH (08:28)
[2018-04-28] MEDS: PROTONIX INJ 40 MG VIAL IVP SCH (08:28)
[2018-04-28] MEDS: FLOMAX PO SCH (08:29)
[2018-04-28] MEDS: FLONASE NASAL SPRAY ENOSTRIL SCH (08:30)
[2018-04-28] MEDS: ZESTRIL TAB 20 MG PO SCH (08:30)
[2018-04-28] MEDS: ZyrTEC TAB 10 MG PO SCH (08:30)
[2018-04-28] MEDS: HYDROCHLOROTHIAZIDE 12.5 MG CAP PO SCH (08:30)
[2018-04-28] MEDS: VIBRAMYCIN 100 MG in NS 100 ML IV + SPIKE MINIBAG* 100 ML IV SCH (08:31)
[2018-04-28] MEDS: NS 1000 ML 1,000 ML IV SCH (08:36)
[2018-04-28] MEDS: ALLEGRA PO SCH (09:00)
[2018-04-28 12:08] VITALS: BP 112/72
--- NOTE | 2018-04-28 12:13 | RAD ---
HISTORY: Congestion and cough. Dyspnea. Single portable view of the chest. Comparison: 04/26/2018. Findings: The trachea is midline. The cardiac silhouette is unremarkable. There are increased perihilar interstitial opacities seen, suggesting central bronchitis. The lungs are otherwise clear without focal infiltrate or effusion. The bony thorax is unremarkable. IMPRESSION: Radiographic findings suggesting bronchitis. No lobar pneumonia or effusion seen. Reported By:
== END 2018-04-28 12:09 | disposition home or self-care (01) | DRG 391 ==
LOC: ER 23:45 → MED/SURG 23:45
PROVIDERS: ADMIT Internal Medicine; ATTEND Internal Medicine
DX: K29.80 Duodenitis without bleeding; K44.9 Diaphragmatic hernia without obstruction or gangrene; X58.XXXA Exposure to other specified factors, initial encounter; J69.0 Pneumonitis due to inhalation of food and vomit; F41.8 Other specified anxiety disorders; Y92.89 Other specified places as the place of occurrence of the external cause; R13.11 Dysphagia, oral phase; K22.2 Esophageal obstruction; I10 Essential (primary) hypertension; K21.9 Gastro-esophageal reflux disease without esophagitis; T18.128A Food in esophagus causing other injury, initial encounter; Z23 Encounter for immunization
CPT/HCPCS: 36415; 71010; 71020; 71045; 71046; 71250; 80053; 81001; 85025; 87040; 87070; 87205; 90686; 92526; 92610; 94640; 94760; 96365; 96374; 99284; A4216; A4217; A4222; C9113; 90670; G0378; J1956; J2270; J2704; J3490; J7030; J7050; J7613